=== PATIENT | male | born 1970 | race Caucasian/White ===

== ENCOUNTER 2017-03-23 10:22 | Day surgery (SDC) | payer OTHER ==
[~2017-03-23 10:22] MED LIST: ACETAMINOPHEN 1,000 MG/100 ML BTL IV ONE; CEFAZOLIN 2 Gram 2 GM/50 ML BAG IVPB ONE; FAMOTIDINE 20MG TABLET PO ONE; MECLIZINE 25 MG TABLET PO ONE; METOCLOPRAMIDE 10 MG TABLET PO ONE
[2017-03-23] MEDS ORDERED: BUPIVACAINE 0.75% W/EPI MPF 30ML VIAL IVP ONE (10:23)
[2017-03-23] MEDS ORDERED: PROPOFOL 10 MG/ML VIAL IV ONE (10:23)
[2017-03-23] MEDS ORDERED: MIDAZOLAM HCL 2MG/2ML VIAL IV ONE (10:23)
[2017-03-23] MEDS ORDERED: KETOROLAC 30 MG/ML VIAL IVP ONE (10:23)
[2017-03-23] MEDS ORDERED: HYDROCODONE/APAP 7.5/325MG TABLET PO ONE (10:23)
[2017-03-23] MEDS ORDERED: ONDANSETRON HCL IV 4 MG/2 ML VIAL IVP ONE (10:23)
[2017-03-23] MEDS ORDERED: LIDOCAINE 2% MDV (20MG/ML) 20ML VIAL IV ONE (10:23)
[2017-03-23] MEDS ORDERED: ENOXAPARIN 40 MG/0.4 ML SYR SQ ONE (10:23)
[2017-03-23] MEDS ORDERED: METHYLPREDNISOLONE 40MG/VIAL IM ONE (10:23)
[2017-03-23] MEDS ORDERED: MORPHINE SULFATE 5 MG/ML PFS IVP ONE (10:23)
[2017-03-23] MEDS ORDERED: FENTANYL PF 100MCG/2ML VIAL IV ONE (10:23)
[2017-03-23] MEDS ORDERED: BUPIVACAINE 0.25% MPF 30ML VIAL IVP ONE (10:23)
--- NOTE | 2017-03-23 15:57 | Operative Note ---
DATE: 03/23/2017 PREOPERATIVE DIAGNOSIS: TORN MEDIAL MENISCUS OF THE RIGHT KNEE. POSTOPERATIVE DIAGNOSES: 1. DIFFUSE SYNOVITIS 2. GRADE 3 CHONDROMALACIA PATELLA. 3. ACUTE CHONDRAL LESION OF THE NOTCH 4. GRADE 3 CHONDROMALACIA MEDIAL FEMORAL CONDYLE. 5. SMALL TEAR OF THE POSTERIOR HORN OF THE MEDIAL MENISCUS. PROCEDURE: 1. RIGHT KNEE ARTHROSCOPY WITH PARTIAL MEDIAL MENISCECTOMY. 2. RIGHT KNEE SYNOVECTOMY. 3. RIGHT KNEE ARTHROSCOPY WITH INTRA-ARTICULAR DEBRIDEMENT AND CHONDROPLASTY OF THE NOTCH, PATELLA, AND MEDIAL FEMORAL CONDYLES. STAFF SURGEON: SHERON FIGUEROA M.D. ANESTHESIA: GENERAL. PREPARATION: CHLORAPREP. INDIVIDUAL CONSIDERATIONS: NONE. PROCEDURE: The patient was taken to the Operating Room and placed supine on the operating table. He had a successful induction of a general anesthetic. His right lower extremity was prepped and draped in the usual fashion. The patient had superolateral inflow cannula placed. The skin was infiltrated with 0.5% Marcaine with Epinephrine prior. A clear effusion was drained and the knee was inflated with normal saline. An inferior medial and inferior lateral portal were made in a similar fashion. The arthroscope was introduced through the inferior lateral portal up to the pouch. The patellofemoral joint showed that there was diffuse synovitis in the pouch and both gutters. This was debrided out with a shaver. The patella had some grade 3 changes and normal tracking. He had an acute cartilage lesion basically two stripe striations in the notch with marginal unstable cartilage, which was debrided out, which left small areas of exposed bone but the unstable areas were debrided. Medially, grade 3 changes of the medial femoral condyle, which were smoothed. The tibial plateau was okay but the posterior medial horn and medial meniscus had a small unstable flap, which was debrided back with a shaver and basket forceps to a stable rim. In the notch, the cruciates were normal. Lateral compartment structures were basically normal except for an insignificant fringe tear involving the lateral horn of the lateral meniscus, which was smoothed with a shaver but this was not significant. After irrigation, the portals were closed with shayy and 20 mL of 0.25% plain Marcaine along with 4 mg of Morphine and 40 mg DepoMedrol were injected into the knee and a sterile Bulkee compressive dressing was applied. The patient tolerated the procedures well. Needle and sponge counts were correct. Estimated blood loss was minimal and he was taken back to Recovery in good condition. There were no complications. cc: Dr. Magdiel Tran JOB NUMBER: [id number] MTDD
== END 2017-03-23 13:14 | disposition home or self-care (01) ==
LOC: SUR 10:22
PROVIDERS: ATTEND Orthopaedic Surgery
DX: M23.221 Derangement of posterior horn of medial meniscus due to old tear or injury, right knee (principal); M65.861 Other synovitis and tenosynovitis, right lower leg; M22.41 Chondromalacia patellae, right knee; M94.261 Chondromalacia, right knee; I10 Essential (primary) hypertension
CPT/HCPCS: 29881; 01400; J1885; J2405; J3010; J0690; J2270; J1030; J1650